=== PATIENT | female | born 1950 | race Caucasian/White ===

== ENCOUNTER → 2016-04-18 | Outpatient (CLI) | payer MEDICARE ==
[2014-10-21 18:45] VITALS: BP 171/74
--- NOTE | 2016-04-18 14:47 | RAD ---
Right forearm, 2 views, 04/18/2016: History: Forearm contusion, injury There is patchy bony demineralization. No fracture is identified. IMPRESSION: No acute bony abnormality is detected.
== END | disposition home or self-care (01) ==
LOC: RAD 13:49
PROVIDERS: ATTEND Internal Medicine
DX: S52.91XA Unspecified fracture of right forearm, initial encounter for closed fracture (principal)
CPT/HCPCS: 73090

== ENCOUNTER 2017-01-11 09:38 | Inpatient (IN) | payer MEDICARE ==
[~2017-01-11] VITALS: Ht 147.3 cm; Wt 43.5 kg
[2017-01-11 10:10] LABS: BILIRUBIN,URINE NEGATIVE (NEG); GLUCOSE,URINE NEGATIVE (NEG); NITRITE,URINE NEGATIVE (NEG); PROTEIN,URINE NEGATIVE (NEG-TRACE)
--- NOTE | 2017-01-11 10:20 | EKG ---
[facility] [address] [place] [address] Test Date: 2017-01-11 Test Time: 10:14:01 Pat Name: AMY KEEN Department: Room: Gender: F Transcript Evaluator: : 1950 Requested By: LENNY CARD Order Number: [id number] Reading MD: Maritza Vázquez Measurements Intervals [place] Rate: 54 P: 90 WI: 152 QRS: 85 QRSD: 76 T: 60 QT: 420 QTc: 400 Interpretive Statements SINUS RHYTHM VENTRICULAR PREMATURE COMPLEX(ES) LOW LIMB LEAD VOLTAGE QRS(T) CONTOUR ABNORMALITY CONSISTENT WITH ANTEROSEPTAL INFARCT AGE UNDETERMINED ABNORMAL ECG Electronically Signed On 01-14-2017 14:35:53 CDT by Maritza Vázquez
--- NOTE | 2017-01-11 10:41 | RAD ---
CT of the head without contrast, 01/11/2017: History: Altered mental status There is moderate cerebral atrophy. There are mild patchy lucencies in the deep white matter bilaterally compatible with chronic ischemic change. The ventricles are within normal limits in size. There is no shift of the midline structures. There is no evidence of acute intracranial hemorrhage or mass effect. IMPRESSION: 1. Cerebral atrophy. 2. Mild patchy deep white matter lucencies compatible with chronic ischemic change. 3. No acute intracranial abnormality is detected. PQRS Compliance Statement: One or more of the following individualized dose reduction techniques were utilized for this examination: 1. Automated exposure control 2. Adjustment of the mA and/or kV according to patient size 3. Use of iterative reconstruction technique
--- NOTE | 2017-01-11 10:46 | RAD ---
EXAM: CHEST 1 VIEW History: Syncope COMPARISON: None available. TECHNIQUE: Single portable radiograph of the chest FINDINGS: The cardiac silhouette is unremarkable. Mild hyperinflated lungs probably emphysematous changes. The costophrenic sulci are clear and well demarcated. Prior changes of CABG. IMPRESSION: No radiographic evidence of an acute cardiopulmonary process.
[2017-01-11 10:51] LABS: BACTERIA,URINE FEW /HPF (0-FEW); SQUAMOUS EPITHELIAL CELL,UR FEW /LPF
--- NOTE | 2017-01-11 11:00 | PHYS DOC ---
Past Medical History Past Medical History: CAD, Hypertension Past Surgical History: Appendectomy, Coronary Bypass Surgery, Hysterectomy Alcohol Use: None Drug Use: None Adult General Chief Complaint Chief Complaint: chest pain, ams [facility] HPI Patient is a 66 year old female who presents with altered mental status and chest pain. Patient states in the middle the night she woke up with a squeezing pressure right-sided chest pain and right back pain that patient attributed to laying on that side wrong. She went back to sleep and woke up 2 hours later and still had the pain. It was near this time that she took 3 total nitroglycerin back to back for the pain. It did improve but did not resolve. Approximately 1.5 hours later made contact the pharmacist she said she could take 3 more of the nitroglycerin which she did. Approximate 10 minutes later patient was sitting at the rectus table and she was staring off in a blank stare, drooling, not responsive to her . No seizure-like activity reported, no loss of consciousness or falls. EMS was called and brought to the ER. Patient now feels better, no active chest pain at this time, no shortness of breath. She was started on amoxicillin yesterday for a bronchitis, she had not yet taken this this morning. No fevers reported, no changes in bowel or bladder. Patient does have a history of coronary artery disease, had open heart surgery several years ago. She states this did not feel similar to the episode she had leading up to the CABG. Primary care physician is Dr. Andrade. Review of Systems Review of Systems Constitutional: Denies fever or chills [] Eyes: Denies change in visual acuity, redness, or eye pain [] HENT: Denies nasal congestion or sore throat [] Respiratory: Reports cough, denies shortness of breath Cardiovascular: No additional information not addressed in HPI [] GI: Denies abdominal pain, nausea, vomiting, bloody stools or diarrhea [] : Denies dysuria or hematuria [] Musculoskeletal: Denies back pain or joint pain [] Integument: Denies rash or skin lesions [] Neurologic: Denies headache, focal weakness or sensory changes [] Allergies Allergies Allergies Coded Allergies Type Severity Reaction Last Updated Verified sulfamethoxazole Allergy Unknown 10/21/14 No trimethoprim Allergy Unknown 10/21/14 No Physical Exam Physical Exam Constitutional: Well developed, well nourished, no acute distress, non-toxic appearance. Thin HENT: Normocephalic, atraumatic, bilateral external ears normal, oropharynx moist, no oral exudates, nose normal. [] Eyes: PERRLA, EOMI, conjunctiva normal, no discharge. [] Neck: Normal range of motion, no tenderness, supple, no stridor. [] Cardiovascular:Heart rate regular regular rhythm, no murmur [] Lungs & Thorax: Bilateral breath sounds clear to auscultation [] Abdomen: Bowel sounds normal, soft, no tenderness, no masses, no pulsatile masses. [] Skin: Warm, dry, no erythema, no rash. [] Back: No tenderness, no CVA tenderness. [] Extremities: No tenderness, no cyanosis, no clubbing, ROM intact, no edema. [] Neurologic: Alert and oriented X 3, normal motor function, normal sensory function, no focal deficits noted, CN II-XII intact Psychologic: Affect normal, judgement normal, mood normal. [] Current Patient Data Vital Signs Vital Signs Date Time Temp Pulse Resp B/P (MAP) Pulse Ox O2 Delivery O2 Flow Rate FiO2 01/11/17 10:53 64 20 98 01/11/17 10:05 97.9 147/64 (91) Room Air 97.9 Lab Values Laboratory Tests Test 01/11/17 09:45 01/11/17 10:50 Urine Collection Type Unknown Urine Color Yellow Urine Clarity Clear Urine pH 6.0 Urine Specific [place] 1.020 Urine Protein Negative mg/dL (NEG-TRACE) Urine Glucose (UA) Negative mg/dL (NEG) Urine Ketones (Stick) Negative mg/dL (NEG) Urine Blood Negative (NEG) Urine Nitrite Negative (NEG) Urine Bilirubin Negative (NEG) Urine Urobilinogen Dipstick 1.0 mg/dL (0.2 mg/dL) Urine Leukocyte Esterase Trace (NEG) Urine RBC 1-2 /HPF (0-2) Urine WBC 1-4 /HPF (0-4) Urine Squamous Epithelial Cells Few /LPF Urine Bacteria Few /HPF (0-FEW) Urine Hyaline Casts Moderate /HPF Urine Mucus Slight /LPF White Blood Count 8.9 x10^3/uL (4.0-11.0) Red Blood Count 4.10 x10^6/uL (3.50-5.40) Hemoglobin 12.9 g/dL (12.0-15.5) Hematocrit 38.1 % (36.0-47.0) Mean Corpuscular Volume 93 fL (79-100) Mean Corpuscular Hemoglobin 32 pg (25-35) Mean Corpuscular Hemoglobin Concent 34 g/dL (31-37) Red Cell Distribution Width 13.6 % (11.5-14.5) Platelet Count 189 x10^3/uL (140-400) Neutrophils (%) (Auto) 63 % (31-73) Lymphocytes (%) (Auto) 26 % (24-48) Monocytes (%) (Auto) 8 % (0-9) Eosinophils (%) (Auto) 2 % (0-3) Basophils (%) (Auto) 1 % (0-3) Neutrophils # (Auto) 5.6 x10^3uL (1.8-7.7) Lymphocytes # (Auto) 2.3 x10^3/uL (1.0-4.8) Monocytes # (Auto) 0.7 x10^3/uL (0.0-1.1) Eosinophils # (Auto) 0.2 x10^3/uL (0.0-0.7) Basophils # (Auto) 0.1 x10^3/uL (0.0-0.2) Prothrombin Time 12.8 SEC (11.7-14.0) Prothrombin Time INR 1.0 (0.8-1.1) D-Dimer (Jacey) 0.45 ug/mlFEU (0.00-0.50) Sodium Level 139 mmol/L (136-145) Potassium Level 4.7 mmol/L (3.5-5.1) Chloride Level 102 mmol/L (98-107) Carbon Dioxide Level 32 mmol/L (21-32) Anion Gap 5 (6-14) L Blood Urea Nitrogen 29 mg/dL (7-20) H Creatinine 1.2 mg/dL (0.6-1.0) H Estimated GFR (Cockcroft-Gault) 44.7 BUN/Creatinine Ratio 24 (6-20) H Glucose Level 98 mg/dL (70-99) Calcium Level 9.0 mg/dL (8.5-10.1) Magnesium Level 2.2 mg/dL (1.8-2.4) Total Bilirubin 0.6 mg/dL (0.2-1.0) Aspartate Amino Transferase (AST) 27 U/L (15-37) Alanine Aminotransferase (ALT) 25 U/L (14-59) Alkaline Phosphatase 71 U/L (46-116) Troponin I Quantitative 0.027 ng/mL (0.000-0.055) Total Protein 7.0 g/dL (6.4-8.2) Albumin 3.4 g/dL (3.4-5.0) Albumin/Globulin Ratio 0.9 (1.0-1.7) L Laboratory Tests 01/11/17 10:50 Laboratory Tests 01/11/17 10:50 EKG EKG 54 bpm, sinus bradycardia, normal axis, normal intervals, wandering baseline but no appreciable ST elevation or depression, T-wave inversion in aVL, interpreted by wa Radiology/Procedures Radiology/Procedures CXR: IMPRESSION: No radiographic evidence of an acute cardiopulmonary process. CT head: IMPRESSION: 1. Cerebral atrophy. 2. Mild patchy deep white matter lucencies compatible with chronic ischemic change. 3. No acute intracranial abnormality is detected. [] Course & Med Decision Making Course & Med Decision Making Pertinent Labs and Imaging studies reviewed. (See chart for details) Patient was given aspirin. No active symptoms while here in the ED. Will admit for ongoing evaluation. I spoke with Dr. Andrade who accepted the patient, requested a consult by cardiology, Dr. Stone, and neurology Macey Disclaimer Dragon Disclaimer This electronic medical record was generated, in whole or in part, using a voice recognition dictation system. Departure Departure Impression: Primary Impression: Chest pain Disposition: ADMITTED INPATIENT Admitting Physician: Justice Andrade Condition: STABLE Referrals: JUSTICE ANDRADE MD (PCP) LENNY CARD MD Jan 11, 2017 11:00
[2017-01-11 11:12] LABS: CREATININE 1.2 mg/dL (0.6-1.0); GFR 44.7; POTASSIUM 4.7 mmol/L (3.5-5.1)
[2017-01-11 11:14] LABS: BASO # 0.1 x10^3/uL (0.0-0.2); BASO % 1 % (0-3); EOS % 2 % (0-3); HEMATOCRIT 38.1 % (36.0-47.0); HEMOGLOBIN 12.9 g/dL (12.0-15.5); LYMPH # 2.3 x10^3/uL (1.0-4.8); LYMPH % 26 % (24-48); MEAN CORPUSCULAR HEMOGLOBIN 32 pg (25-35); MEAN CORPUSCULAR HGB CONC 34 g/dL (31-37); MEAN CORPUSCULAR VOLUME 93 fL (79-100); MONO % 8 % (0-9); NEUT % 63 % (31-73); PLATELET COUNT 189 x10^3/uL (140-400); RED CELL DISTRIBUTION WIDTH 13.6 % (11.5-14.5); WHITE BLOOD COUNT 8.9 x10^3/uL (4.0-11.0)
[2017-01-11 11:18] LABS: ALBUMIN 3.4 g/dL (3.4-5.0); ALBUMIN/GLOBULIN RATIO 0.9 (1.0-1.7); MAGNESIUM 2.2 mg/dL (1.8-2.4); PROTHROMBIN TIME PATIENT 12.8 SEC (11.7-14.0); TOTAL BILIRUBIN 0.6 mg/dL (0.2-1.0)
[2017-01-11] MEDS ORDERED: ONDANSETRON PF 4 MG/2 ML VIAL. IV PRN (11:30)
[2017-01-11] MEDS ORDERED: ASPIRIN 325 MG TABLET PO ONE (11:30)
[2017-01-11] MEDS ORDERED: LISI-334 PO (11:39)
[2017-01-11] MEDS ORDERED: LEVO50TA5 PO (11:40)
[2017-01-11] MEDS ORDERED: AMLO5TAB2 PO (11:40)
[2017-01-11] MEDS ORDERED: ATOR10TA60 PO (11:40)
[2017-01-11] MEDS ORDERED: CARV12.52 PO (11:41)
[2017-01-11] MEDS ORDERED: ASPI-482 PO (11:44)
[2017-01-11] MEDS ORDERED: NITR0.4T SL (11:44)
[2017-01-11] MEDS ORDERED: AMOX500C PO (11:44)
[2017-01-11] MEDS ORDERED: ASPIRIN CHEWABLE 81 MG TABLET. PO ONE (11:45)
[2017-01-11 12:15] VITALS: BP_SYST 141; BP_SYST 157; BP_DIAS 37; BP_DIAS 40
--- NOTE | 2017-01-11 13:00 | PDOC2 ---
CONSULT Date of Consult Date of Consult DATE: 01/11/17 TIME: 12:45 Reason for Consult Reason for Consult: Chest Pain Identification/Chief Complaint Chief Complaint Right chest pain Problems: Source Source: Patient History of Present Illness Reason for Visit: Miss Borjas is a pleasant 66 year old female with PMH of CAD s/p CABG in 2012 that she reports was done here at [facility]. She presented to the ED with chest pain. She reports that she woke up with right sided pain just below her right arm that radiated around to her back this morning. She took 3 nitroglycerin which partially improved her pain and allowed her to go back to sleep. She awoke again several hours later with increased pain, and took nitroglycerin again. After taking the nitroglycerin, she began having a blank stare and was unable to talk per her . At this point, EMS was called and she was brought to the ED. Upon interviewing her, she has no current chest pain or shortness of breath. She reports that she has also had right sided lower back pain for the past 2-3 weeks. she follows up regularly [id number] with her PCP Dr. Andrade. Pt had a recent bronchitis and a lot of cough. Past Medical History Past Medical History CAD s/p CABG 2012 Cardiovascular: CAD, HTN Pulmonary: Bronchitis Past Surgical History Past Surgical History: Appendectomy, CABG, Hysterectomy Social History Lives: with Family Current Problem List Problem List Problems Chest pain-acute altered mental status Current Medications Current Medications Current Medications Aspirin (David Aspirin) 325 mg 1X ONCE PO ; Start 01/11/17 at 11:30; Stop at 11:31; Status DC Ondansetron HCl (Zofran) 4 mg PRN Q8HRS PRN IV NAUSEA/VOMITING; Start at 11:30; Stop 01/12/17 at 11:29 Aspirin (Children'S Aspirin) 162 mg 1X ONCE PO Last administered on t 11:45; Start 01/11/17 at 11:45; Stop 01/11/17 at 11:46; Status DC Active Scripts Active Reported Nitrostat (Nitroglycerin) 0.4 Mg Tab.subl 0.4 Mg SL PRN Q5MIN PRN Aspir 81 (Aspirin) 81 Mg Tablet.dr 1 Tab PO DAILY Amoxicillin 500 Mg Capsule 1 Cap PO Q8HRS Carvedilol 12.5 Mg Tablet 1 Tab PO BID Atorvastatin Calcium 10 Mg Tablet 1 Tab PO DAILY Amlodipine Besylate 5 Mg Tablet 5 Mg PO DAILY Levothyroxine Sodium 50 Mcg Tablet 1 Tab PO DAILY Lisinopril 20 Mg Tablet 1 Tab PO DAILY Allergies Allergies: Coded Allergies: sulfamethoxazole (Unverified Allergy, Unknown, 10/21/14) trimethoprim (Unverified Allergy, Unknown, 10/21/14) Physical Exam Physical Exam General: well appearing, in no acute distress HEENT: neck supple, no JVD Heart: regular rate and rhythm, normal S1, S2, no S3, S4, without murmurs Respiratory: no increased work of breathing, some crackles in R base ext: warm, no clubbing, cyanosis, or edema Neuro: grossly intact Vitals VITALS Vital Signs Date Time Temp Pulse Resp B/P (MAP) Pulse Ox O2 Delivery O2 Flow Rate FiO2 01/11/17 10:53 64 20 98 01/11/17 10:05 97.9 147/64 (91) Room Air 97.9 Labs Labs Laboratory Tests Test 01/11/17 09:45 01/11/17 10:50 Urine Collection Type Unknown Urine Color Yellow Urine Clarity Clear Urine pH 6.0 Urine Specific [place] 1.020 Urine Protein Negative mg/dL (NEG-TRACE) Urine Glucose (UA) Negative mg/dL (NEG) Urine Ketones (Stick) Negative mg/dL (NEG) Urine Blood Negative (NEG) Urine Nitrite Negative (NEG) Urine Bilirubin Negative (NEG) Urine Urobilinogen Dipstick 1.0 mg/dL (0.2 mg/dL) Urine Leukocyte Esterase Trace (NEG) Urine RBC 1-2 /HPF (0-2) Urine WBC 1-4 /HPF (0-4) Urine Squamous Epithelial Cells Few /LPF Urine Bacteria Few /HPF (0-FEW) Urine Hyaline Casts Moderate /HPF Urine Mucus Slight /LPF White Blood Count 8.9 x10^3/uL (4.0-11.0) Red Blood Count 4.10 x10^6/uL (3.50-5.40) Hemoglobin 12.9 g/dL (12.0-15.5) Hematocrit 38.1 % (36.0-47.0) Mean Corpuscular Volume 93 fL (79-100) Mean Corpuscular Hemoglobin 32 pg (25-35) Mean Corpuscular Hemoglobin Concent 34 g/dL (31-37) Red Cell Distribution Width 13.6 % (11.5-14.5) Platelet Count 189 x10^3/uL (140-400) Neutrophils (%) (Auto) 63 % (31-73) Lymphocytes (%) (Auto) 26 % (24-48) Monocytes (%) (Auto) 8 % (0-9) Eosinophils (%) (Auto) 2 % (0-3) Basophils (%) (Auto) 1 % (0-3) Neutrophils # (Auto) 5.6 x10^3uL (1.8-7.7) Lymphocytes # (Auto) 2.3 x10^3/uL (1.0-4.8) Monocytes # (Auto) 0.7 x10^3/uL (0.0-1.1) Eosinophils # (Auto) 0.2 x10^3/uL (0.0-0.7) Basophils # (Auto) 0.1 x10^3/uL (0.0-0.2) Prothrombin Time 12.8 SEC (11.7-14.0) Prothromb Time International Ratio 1.0 (0.8-1.1) D-Dimer (Jacey) 0.45 ug/mlFEU (0.00-0.50) Sodium Level 139 mmol/L (136-145) Potassium Level 4.7 mmol/L (3.5-5.1) Chloride Level 102 mmol/L (98-107) Carbon Dioxide Level 32 mmol/L (21-32) Anion Gap 5 (6-14) Blood Urea Nitrogen 29 mg/dL (7-20) Creatinine 1.2 mg/dL (0.6-1.0) Estimated GFR (Cockcroft-Gault) 44.7 BUN/Creatinine Ratio 24 (6-20) Glucose Level 98 mg/dL (70-99) Calcium Level 9.0 mg/dL (8.5-10.1) Magnesium Level 2.2 mg/dL (1.8-2.4) Total Bilirubin 0.6 mg/dL (0.2-1.0) Aspartate Amino Transf (AST/SGOT) 27 U/L (15-37) Alanine Aminotransferase (ALT/SGPT) 25 U/L (14-59) Alkaline Phosphatase 71 U/L (46-116) Troponin I Quantitative 0.027 ng/mL (0.000-0.055) Total Protein 7.0 g/dL (6.4-8.2) Albumin 3.4 g/dL (3.4-5.0) Albumin/Globulin Ratio 0.9 (1.0-1.7) Laboratory Tests Test 01/11/17 09:45 01/11/17 10:50 Urine Collection Type Unknown Urine Color Yellow Urine Clarity Clear Urine pH 6.0 Urine Specific [place] 1.020 Urine Protein Negative mg/dL (NEG-TRACE) Urine Glucose (UA) Negative mg/dL (NEG) Urine Ketones (Stick) Negative mg/dL (NEG) Urine Blood Negative (NEG) Urine Nitrite Negative (NEG) Urine Bilirubin Negative (NEG) Urine Urobilinogen Dipstick 1.0 mg/dL (0.2 mg/dL) Urine Leukocyte Esterase Trace (NEG) Urine RBC 1-2 /HPF (0-2) Urine WBC 1-4 /HPF (0-4) Urine Squamous Epithelial Cells Few /LPF Urine Bacteria Few /HPF (0-FEW) Urine Hyaline Casts Moderate /HPF Urine Mucus Slight /LPF White Blood Count 8.9 x10^3/uL (4.0-11.0) Red Blood Count 4.10 x10^6/uL (3.50-5.40) Hemoglobin 12.9 g/dL (12.0-15.5) Hematocrit 38.1 % (36.0-47.0) Mean Corpuscular Volume 93 fL (79-100) Mean Corpuscular Hemoglobin 32 pg (25-35) Mean Corpuscular Hemoglobin Concent 34 g/dL (31-37) Red Cell Distribution Width 13.6 % (11.5-14.5) Platelet Count 189 x10^3/uL (140-400) Neutrophils (%) (Auto) 63 % (31-73) Lymphocytes (%) (Auto) 26 % (24-48) Monocytes (%) (Auto) 8 % (0-9) Eosinophils (%) (Auto) 2 % (0-3) Basophils (%) (Auto) 1 % (0-3) Neutrophils # (Auto) 5.6 x10^3uL (1.8-7.7) Lymphocytes # (Auto) 2.3 x10^3/uL (1.0-4.8) Monocytes # (Auto) 0.7 x10^3/uL (0.0-1.1) Eosinophils # (Auto) 0.2 x10^3/uL (0.0-0.7) Basophils # (Auto) 0.1 x10^3/uL (0.0-0.2) Prothrombin Time 12.8 SEC (11.7-14.0) Prothromb Time International Ratio 1.0 (0.8-1.1) D-Dimer (Jacey) 0.45 ug/mlFEU (0.00-0.50) Sodium Level 139 mmol/L (136-145) Potassium Level 4.7 mmol/L (3.5-5.1) Chloride Level 102 mmol/L (98-107) Carbon Dioxide Level 32 mmol/L (21-32) Anion Gap 5 (6-14) Blood Urea Nitrogen 29 mg/dL (7-20) Creatinine 1.2 mg/dL (0.6-1.0) Estimated GFR (Cockcroft-Gault) 44.7 BUN/Creatinine Ratio 24 (6-20) Glucose Level 98 mg/dL (70-99) Calcium Level 9.0 mg/dL (8.5-10.1) Magnesium Level 2.2 mg/dL (1.8-2.4) Total Bilirubin 0.6 mg/dL (0.2-1.0) Aspartate Amino Transf (AST/SGOT) 27 U/L (15-37) Alanine Aminotransferase (ALT/SGPT) 25 U/L (14-59) Alkaline Phosphatase 71 U/L (46-116) Troponin I Quantitative 0.027 ng/mL (0.000-0.055) Total Protein 7.0 g/dL (6.4-8.2) Albumin 3.4 g/dL (3.4-5.0) Albumin/Globulin Ratio 0.9 (1.0-1.7) Assessment/Plan Assessment/Plan Miss Borjas is a 66 year old female with PMH CAD s/p CABG who presented to the ED with altered mental status following taking nitroglycerin for chest pain The chest pain seems to be atypical for angina and is probably secondary to chest wall pain from coughing. The episode of unresponsiveness may be secondary to hypotension from the nitroglycerin. At this time she seems to be normal and back to her baseline. I would like to get an echocardiogram to see where the LV function is at. Thank you for asking me to participate in the care of this pt. JOHN PAUL CARVER MD Jan 11, 2017 13:00
[2017-01-11] MEDS ORDERED: NITROGLYCERIN SUBLINGUAL 0.4 MG BOTTLE OF 25. SL PRN (14:15)
[2017-01-11] MEDS: amLODIPine BESYLATE 5 MG TABLET PO SCH (14:30)
[2017-01-11] MEDS: LEVOTHYROXINE 50 MCG TABLET PO SCH (14:30)
[2017-01-11] MEDS: LISINOPRIL 20 MG TABLET PO SCH (14:30)
--- NOTE | 2017-01-11 14:53 | PDOC ---
Provider Note Provider Note history and physical dictated # [id number] JAME RILEY MD Jan 11, 2017 14:52
[2017-01-11] MEDS ORDERED: ACETAMINOPHEN 325 MG TABLET. PO PRN (15:00)
[2017-01-11] MEDS ORDERED: IV 1/2 NORMAL SALINE 1,000 ML IV SCH (15:00)
[2017-01-11] MEDS ORDERED: MAGNESIUM HYDROXIDE 2,400 MG/30 ML ORAL.SUSP. PO PRN (15:00)
--- NOTE | 2017-01-11 15:26 | HP ---
ADMIT DATE: 01/11/2017 HISTORY OF PRESENT ILLNESS: The patient is a 66-year-old white female with history of coronary artery disease and previous coronary artery bypass graft surgery in 2012, who has hypertension, hyperlipidemia and hypothyroidism who awoke in the morning with some right-sided chest pain. She took 3 sublingual nitroglycerins which improved the pain and she eventually went to sleep, but she again was awakened with chest discomfort and took three 81 mg aspirins and also took some more sublingual nitroglycerin and was sitting at the table and her noted that she had a blank stare and some drooling and this lasted for about 10-15 minutes and eventually resolved. EMT was summoned and the patient was noted to be confused and did not have any recurrent chest pain or shortness of breath, sent to the [facility] Emergency Room where an EKG showed no acute change. Chest x-ray was clear. A CAT scan of the head was negative. She was alert, coherent and pain free. She is therefore admitted for further evaluation of her chest pain. Her D-dimer was normal. She was subsequently admitted to the hospital for evaluation. She has already been seen by Dr. Stone in consultation. We have consulted the neurologist who has not seen the patient as of yet and she was seen by myself in the Emergency Room. ALLERGIES: Include SULFA and TRIMETHOPRIM. MEDICATIONS: Include amoxicillin 500 mg t.i.d., which was started yesterday for acute bronchitis, multiple vitamin once a day, carvedilol 12.5 mg b.i.d., levothyroxine 50 mcg every day, nitroglycerin 0.4 mg sublingual p.r.n., atorvastatin 10 mg every day, lisinopril 20 mg every day, amlodipine 5 mg every day and aspirin 81 mg every day. PAST MEDICAL HISTORY: Significant for coronary artery disease, hypertension, hyperlipidemia, hypothyroidism, recently diagnosed acute bronchitis. She also has a history of an appendectomy, total abdominal hysterectomy, bilateral salpingo-oophorectomy and coronary artery bypass graft surgery in 2012. SOCIAL HISTORY: She does not drink alcohol nor does she smoke cigarettes. She is . FAMILY HISTORY: Father had hypertension. REVIEW OF SYSTEMS: GENERAL: There has been no fever, chills or sweats. CARDIOVASCULAR: She had chest pain. PULMONARY: She had a cough yesterday, but not much today. GASTROINTESTINAL: No constipation. SKIN: No rashes. NEUROLOGIC: She had the episode of unresponsiveness. The rest of systems reviewed are negative except as stated in history of present illness. PHYSICAL EXAMINATION: VITAL SIGNS: Temperature is 98.1 degrees, pulse rate was 62, respiratory rate 20, blood pressure 141/37, oxygen saturation 96% on room air. HEENT: Eyes: Gaze is conjugate. Extraocular muscles are intact. Mouth: Tongue is midline. NECK: There is no cervical lymphadenopathy or thyroid enlargement. HEART: Reveals an S1, S2. There is no S3 or murmur. LUNGS: Clear. ABDOMEN: Soft with no hepatosplenomegaly, masses or tenderness. BREASTS: No masses. EXTREMITIES: Lower extremities without edema. SKIN: No rashes. NEUROLOGIC: She is coherent, speaks fluently. She has no facial weakness. Kzuqop-[id number]-fqdj testing is normal bilaterally. 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 SKIN: No rashes. LABORATORY DATA: White count 8.9, hemoglobin 12.9, platelet count 189,000, 63 polys and 26 lymphocytes. INR 1.0 with a D-dimer of 0.45. Serum sodium 139, potassium 4.7, chloride 102, total CO2 of 32, BUN 29, creatinine 1.2. Liver function tests were normal. Albumin 3.4, troponin was 0.027. Urinalysis was unremarkable. She did have a chest x-ray, which showed clear lungs and no acute abnormality. She had a CAT scan of the brain done without contrast, which showed no acute abnormality. She had some cerebral atrophy. Electrocardiogram showed sinus rhythm with no acute change. I believe she had a premature ventricular contraction. ASSESSMENT: 1. Atypical right-sided chest pain. It does not sound cardiac. 2. Appears to have syncopal episode. I doubt seizure. It is possible she could have some orthostatic hypotension from the sublingual nitroglycerin in the setting of prerenal azotemia and dehydration. 3. Dehydration. PLAN: 1. At this time is to give her some IV fluids and when seen by senior windows systems administrator will also consult Dr. Betancourt for Cardiology. Gave her some IV fluids. 2. Hypertension. 3. Hyperlipidemia. 4. Hypothyroidism. 5. Coronary artery disease with previous coronary bypass graft surgery. We will do cardiac enzymes also. JAME RILEY MD DR: Reid JOB#: [id number] / [id number]
--- NOTE | 2017-01-11 16:11 | PDOC2 ---
NEUROLOGY CONSULT Date of Admission Date of Admission DATE: 01/11/17 TIME: 15:39 Reason for Consult Reason for Consult: IMPRESSION: Unresponsiveness episode. Confusion. CVA evaluation. Chest pain, right side chest. HTN HLD CAD s/p CABG Hypothyroidism RECOMMENDATIONS/PLAN: EEG Lab: see orders. Brain MRI w/o contrast. Treat medical and cardiac disease. Discussed with her at bedside. HISTORY OF THE PRESENT ILLNESS: 66-y-old female patient with above medical and cardiac diseases had an episode of unresponsiveness. The patient was unable to provide the detailed information about her episode due to lack of memory on it, but she remembered she had severe right side chest pain that woken her up from sleep. She eventually took 3 nitroglycerin for her right side and back chest pain. Per her , she then was sitting there became unresponsive to verbal and textile stimuli. Her eye were described as open as staring. No seizure observed. 911 was called and she was brought to the ER of [facility]. Her episode lasted for about 10 minutes. PAST MEDICAL HISTORY: HTN HLD CAD Hypothyroidism PAST SURGERY HISTORY: S/P CABG Appendectomy Hysterectomy ALLERGY: Sulfa drugs. MEDICATIONS: Refer to [facility] FAMILY HISTORY: Her father had HTN. SOCIAL HISTORY: Lives at home. Denies current smoking, drinking, and illicit drug use. REVIEW OF SYSTEMS: Constitutional: Mild malnutrition. Head: No recent traumatic brain or head injury. Skin: No edema, or rash. Ear: No infection, tinnitus. Eyes: No vision loss or color blindness. Nose: No bleeding or purulent discharges. Hearing: No hearing decrease. Neck: No recent injury. Breast: No history of cancer, masses,or discharges. Cardiac: CAD, s/p CABG, HTN, HLD. Pulmonary: No COPD. GI: No GI ulcer, GI bleeding. Urinary/genital: UTI. Endocrinologic: Hypothyroidism. Skeletomuscular: No muscular atrophy, deformity. Neurological: see HP. Psychiatric: Denies drug use/abuse. Otherwise, not [id number] review of systems. PHYSICAL EXAMINATION: General appearance is in subacute distress. HEENT: Normocephalic and nontraumatic. Eyes, nose, ears, and throat are unremarkable. Neck is supple. No lymphadenopathy. No bruits are heard over the carotid artery. No crepitus. Cardiovascular: S1, S2, regular rate and rhythm. Pulmonary: Clear to auscultation bilaterally. Abdomen: Bowel sounds are positive. Abdomen is soft, nontender, and nondistended. Extremities: No rash, lesions, or edema. No restriction of range of motion NEUROLOGICAL EXAMINATION: Alert Oriented to time, place and person. PERRL. EOMI. CN: no focal findings. Muscle tone: within normal. Muscle strength: 5- DTR: 2 Plantar reflex: Flexor response bilaterally Gait: not examined in bed. Sensory exam: no abnormal findings. No cerebellar signs elicited. F-T-N test accurate. Current Medications Current Medications Current Medications Aspirin (David Aspirin) 325 mg 1X ONCE PO ; Start 01/11/17 at 11:30; Stop at 11:31; Status DC Ondansetron HCl (Zofran) 4 mg PRN Q8HRS PRN IV NAUSEA/VOMITING; Start at 11:30; Stop 01/12/17 at 11:29 Aspirin (Children'S Aspirin) 162 mg 1X ONCE PO Last administered on t 11:45; Start 01/11/17 at 11:45; Stop 01/11/17 at 11:46; Status DC Amlodipine Besylate (Norvasc) 5 mg DAILY PO ; Start 01/11/17 at 14:30 Aspirin (Ecotrin) 81 mg DAILY08 PO ; Start 01/12/17 at 08:00 Atorvastatin Calcium (Lipitor) 10 mg QHS PO ; Start 01/11/17 at 21:00 Carvedilol (Coreg) 12.5 mg BIDWMEALS PO ; Start 01/11/17 at 17:00 Levothyroxine Sodium (Synthroid) 50 mcg DAILY07 PO ; Start 01/11/17 at 14:30 Lisinopril (Prinivil) 20 mg DAILY PO ; Start 01/11/17 at 14:30 Nitroglycerin (Nitrostat) 0.4 mg PRN Q5MIN PRN SL CHEST PAIN; Start 01/11/17 at 14:15 Amoxicillin (Amoxil) 500 mg [id number] PO ; Start 01/11/17 at 14:30 Lactobacillus Rhamnosus (Culturelle) 1 cap BID PO ; Start 01/11/17 at 21:00 Sodium Chloride 1,000 ml @ 50 mls/hr Q20H IV ; Start 01/11/17 at 15:00 Acetaminophen (Tylenol) 650 mg PRN Q6HRS PRN PO MILD PAIN / TEMP; Start at 15:00 Magnesium Hydroxide (Milk Of Magnesia) 2,400 mg PRN DAILY PRN PO CONSTIPATION; Start 01/11/17 at 15:00 Active Scripts Active Reported Nitrostat (Nitroglycerin) 0.4 Mg Tab.subl 0.4 Mg SL PRN Q5MIN PRN Aspir 81 (Aspirin) 81 Mg Tablet.dr 1 Tab PO DAILY Amoxicillin 500 Mg Capsule 1 Cap PO Q8HRS Carvedilol 12.5 Mg Tablet 1 Tab PO BID Atorvastatin Calcium 10 Mg Tablet 1 Tab PO DAILY Amlodipine Besylate 5 Mg Tablet 5 Mg PO DAILY Levothyroxine Sodium 50 Mcg Tablet 1 Tab PO DAILY Lisinopril 20 Mg Tablet 1 Tab PO DAILY Allergies Allergies: Coded Allergies: sulfamethoxazole (Unverified Allergy, Unknown, 10/21/14) trimethoprim (Unverified Allergy, Unknown, 10/21/14) Vitals VITALS Vital Signs Date Time Temp Pulse Resp B/P (MAP) Pulse Ox O2 Delivery O2 Flow Rate FiO2 01/11/17 12:15 98.1 62 20 141/37 (71) 96 Room Air 98.1 Labs Labs Laboratory Tests Test 01/11/17 09:45 01/11/17 10:50 Urine Collection Type Unknown Urine Color Yellow Urine Clarity Clear Urine pH 6.0 Urine Specific [place] 1.020 Urine Protein Negative mg/dL (NEG-TRACE) Urine Glucose (UA) Negative mg/dL (NEG) Urine Ketones (Stick) Negative mg/dL (NEG) Urine Blood Negative (NEG) Urine Nitrite Negative (NEG) Urine Bilirubin Negative (NEG) Urine Urobilinogen Dipstick 1.0 mg/dL (0.2 mg/dL) Urine Leukocyte Esterase Trace (NEG) Urine RBC 1-2 /HPF (0-2) Urine WBC 1-4 /HPF (0-4) Urine Squamous Epithelial Cells Few /LPF Urine Bacteria Few /HPF (0-FEW) Urine Hyaline Casts Moderate /HPF Urine Mucus Slight /LPF White Blood Count 8.9 x10^3/uL (4.0-11.0) Red Blood Count 4.10 x10^6/uL (3.50-5.40) Hemoglobin 12.9 g/dL (12.0-15.5) Hematocrit 38.1 % (36.0-47.0) Mean Corpuscular Volume 93 fL (79-100) Mean Corpuscular Hemoglobin 32 pg (25-35) Mean Corpuscular Hemoglobin Concent 34 g/dL (31-37) Red Cell Distribution Width 13.6 % (11.5-14.5) Platelet Count 189 x10^3/uL (140-400) Neutrophils (%) (Auto) 63 % (31-73) Lymphocytes (%) (Auto) 26 % (24-48) Monocytes (%) (Auto) 8 % (0-9) Eosinophils (%) (Auto) 2 % (0-3) Basophils (%) (Auto) 1 % (0-3) Neutrophils # (Auto) 5.6 x10^3uL (1.8-7.7) Lymphocytes # (Auto) 2.3 x10^3/uL (1.0-4.8) Monocytes # (Auto) 0.7 x10^3/uL (0.0-1.1) Eosinophils # (Auto) 0.2 x10^3/uL (0.0-0.7) Basophils # (Auto) 0.1 x10^3/uL (0.0-0.2) Prothrombin Time 12.8 SEC (11.7-14.0) Prothromb Time International Ratio 1.0 (0.8-1.1) D-Dimer (Jacey) 0.45 ug/mlFEU (0.00-0.50) Sodium Level 139 mmol/L (136-145) Potassium Level 4.7 mmol/L (3.5-5.1) Chloride Level 102 mmol/L (98-107) Carbon Dioxide Level 32 mmol/L (21-32) Anion Gap 5 (6-14) Blood Urea Nitrogen 29 mg/dL (7-20) Creatinine 1.2 mg/dL (0.6-1.0) Estimated GFR (Cockcroft-Gault) 44.7 BUN/Creatinine Ratio 24 (6-20) Glucose Level 98 mg/dL (70-99) Calcium Level 9.0 mg/dL (8.5-10.1) Magnesium Level 2.2 mg/dL (1.8-2.4) Total Bilirubin 0.6 mg/dL (0.2-1.0) Aspartate Amino Transf (AST/SGOT) 27 U/L (15-37) Alanine Aminotransferase (ALT/SGPT) 25 U/L (14-59) Alkaline Phosphatase 71 U/L (46-116) Troponin I Quantitative 0.027 ng/mL (0.000-0.055) Total Protein 7.0 g/dL (6.4-8.2) Albumin 3.4 g/dL (3.4-5.0) Albumin/Globulin Ratio 0.9 (1.0-1.7) Laboratory Tests Test 01/11/17 09:45 01/11/17 10:50 Urine Collection Type Unknown Urine Color Yellow Urine Clarity Clear Urine pH 6.0 Urine Specific [place] 1.020 Urine Protein Negative mg/dL (NEG-TRACE) Urine Glucose (UA) Negative mg/dL (NEG) Urine Ketones (Stick) Negative mg/dL (NEG) Urine Blood Negative (NEG) Urine Nitrite Negative (NEG) Urine Bilirubin Negative (NEG) Urine Urobilinogen Dipstick 1.0 mg/dL (0.2 mg/dL) Urine Leukocyte Esterase Trace (NEG) Urine RBC 1-2 /HPF (0-2) Urine WBC 1-4 /HPF (0-4) Urine Squamous Epithelial Cells Few /LPF Urine Bacteria Few /HPF (0-FEW) Urine Hyaline Casts Moderate /HPF Urine Mucus Slight /LPF White Blood Count 8.9 x10^3/uL (4.0-11.0) Red Blood Count 4.10 x10^6/uL (3.50-5.40) Hemoglobin 12.9 g/dL (12.0-15.5) Hematocrit 38.1 % (36.0-47.0) Mean Corpuscular Volume 93 fL (79-100) Mean Corpuscular Hemoglobin 32 pg (25-35) Mean Corpuscular Hemoglobin Concent 34 g/dL (31-37) Red Cell Distribution Width 13.6 % (11.5-14.5) Platelet Count 189 x10^3/uL (140-400) Neutrophils (%) (Auto) 63 % (31-73) Lymphocytes (%) (Auto) 26 % (24-48) Monocytes (%) (Auto) 8 % (0-9) Eosinophils (%) (Auto) 2 % (0-3) Basophils (%) (Auto) 1 % (0-3) Neutrophils # (Auto) 5.6 x10^3uL (1.8-7.7) Lymphocytes # (Auto) 2.3 x10^3/uL (1.0-4.8) Monocytes # (Auto) 0.7 x10^3/uL (0.0-1.1) Eosinophils # (Auto) 0.2 x10^3/uL (0.0-0.7) Basophils # (Auto) 0.1 x10^3/uL (0.0-0.2) Prothrombin Time 12.8 SEC (11.7-14.0) Prothromb Time International Ratio 1.0 (0.8-1.1) D-Dimer (Jacey) 0.45 ug/mlFEU (0.00-0.50) Sodium Level 139 mmol/L (136-145) Potassium Level 4.7 mmol/L (3.5-5.1) Chloride Level 102 mmol/L (98-107) Carbon Dioxide Level 32 mmol/L (21-32) Anion Gap 5 (6-14) Blood Urea Nitrogen 29 mg/dL (7-20) Creatinine 1.2 mg/dL (0.6-1.0) Estimated GFR (Cockcroft-Gault) 44.7 BUN/Creatinine Ratio 24 (6-20) Glucose Level 98 mg/dL (70-99) Calcium Level 9.0 mg/dL (8.5-10.1) Magnesium Level 2.2 mg/dL (1.8-2.4) Total Bilirubin 0.6 mg/dL (0.2-1.0) Aspartate Amino Transf (AST/SGOT) 27 U/L (15-37) Alanine Aminotransferase (ALT/SGPT) 25 U/L (14-59) Alkaline Phosphatase 71 U/L (46-116) Troponin I Quantitative 0.027 ng/mL (0.000-0.055) Total Protein 7.0 g/dL (6.4-8.2) Albumin 3.4 g/dL (3.4-5.0) Albumin/Globulin Ratio 0.9 (1.0-1.7) IGNACIO ESCALANTE MD Jan 11, 2017 16:11
--- NOTE | 2017-01-11 17:32 | RAD ---
EXAM: Brain MRI without contrast. HISTORY: Mental status changes. TECHNIQUE: Multiplanar, multisequence magnetic resonance imaging of the brain was performed without contrast. COMPARISON: None. FINDINGS: There is no restricted diffusion to suggest acute or subacute infarction. There is a focus of susceptibility effect within the right occipital lobe likely due to chronic microhemorrhage. There is no mass effect or midline shift. There is no hydrocephalus. There are scattered focal areas of signal change within the cerebral white matter, a nonspecific finding likely due to chronic small vessel disease. There is evidence of lens surgery. There is paranasal sinus because of thickening. The mastoid air cells are clear. There are normal flow voids within the cerebral vessels. IMPRESSION: 1. No acute intracranial finding. 2. Focal areas of signal change within the cerebral white matter, a nonspecific finding likely due to chronic small vessel disease. 3. Cerebral volume loss, greater than expected for patient age. Electronically signed by: Josy Martinez MD (01/11/2017 5:28 PM) [id number]
[2017-01-11] MEDS: AMOXICILLIN 250 MG CAPSULE. PO SCH ×2 (19:12→21:00)
[2017-01-11] MEDS: CARVEDILOL 12.5 MG TABLET. PO SCH (19:12)
--- NOTE | 2017-01-11 19:12 | CARD ---
APPROVED REPORT EXAM: Two-dimensional and M-mode echocardiogram with Doppler and color Doppler. Other Information Quality : Good INDICATION Chest Pain Post-CABGS 2D DIMENSIONS Left Atrium(2D)3.0 (1.6-4.0cm)IVSd0.8 (0.7-1.1cm) Aortic Root(2D)2.4 (2.0-3.7cm)LVDd3.8 (3.9-5.9cm) LVOT Diameter2.0 (1.8-2.4cm)PWd0.8 (0.7-1.1cm) LVDs2.5 (2.5-4.0cm)FS (%) 34.8 % SV40.4 mlLVEF(%)65.0 (>50%) Aortic Valve AoV Peak Shukri.135.6cm/sAoV VTI37.6cm AO Peak GR.7.4mmHgLVOT Peak Shukri.64.6cm/s AO Mean GR.4mmHgAVA (VMAX)1.47cm2 [place] (VTI)1.50cm2 Mitral Valve MV E Uwjdernm000.5cm/sMV DECEL [id number] MV A Ealvhvlr99.3cm/sE/A Ratio2.1 Tricuspid Valve TR P. Kopnjphu037wg/sRAP DQFBQZBW6trQs TR Peak Gr.11vmNwNMQM33ceSm Pulmonary Vein S1 Dxrwinhu51.8cm/sD2 Aeurqnom73.6cm/s LEFT VENTRICLE The left ventricle is normal size. There is normal left ventricular wall thickness. Left ventricle sy stolic function is normal. The Ejection Fraction is 65%. Septal motion consistent with post-operative state. Transmitral Doppler flow pattern is Grade I-abnormal relaxation pattern. RIGHT VENTRICLE The right ventricle is normal size. The right ventricular systolic function is normal. ATRIA The left atrium size is normal. The right atrium size is normal. The interatrial septum is intact wit h no evidence for an atrial septal defect or patent foramen ovale as noted on 2-D or Doppler imaging. AORTIC VALVE The aortic valve is calcified but opens well. Doppler and Color Flow revealed trace aortic regurgitat ion. There is mild valvular aortic stenosis. MITRAL VALVE The mitral valve is calcified but opens well. There is no evidence of mitral valve prolapse. There is no mitral valve stenosis. Doppler and Color-flow revealed mild mitral regurgitation. TRICUSPID VALVE The tricuspid valve is normal in structure and function. Doppler and Color Flow revealed mild tricusp id regurgitation. There is mild pulmonary hypertension. The PA pressure was estimated at 33 mmHg. The re is no tricuspid valve prolapse or vegetation. There is no tricuspid valve stenosis. PULMONIC VALVE The pulmonary valve is normal in structure Doppler and Color Flow revealed mild pulmonic valvular reg urgitation. There is no pulmonic valvular stenosis. GREAT VESSELS The aortic root is normal in size. The ascending aorta is normal in size. The IVC is normal in size a nd collapses >50% with inspiration. PERICARDIAL EFFUSION There is no pleural effusion. There is no evidence of significant pericardial effusion. Critical Notification Critical Value: No <Conclusion> Left ventricle systolic function is normal. The Ejection Fraction is 65%. Transmitral Doppler flow pattern is Grade I-abnormal relaxation pattern. The left atrium size is normal. The right atrium size is normal. Doppler and Color Flow revealed trace aortic regurgitation. Doppler and Color-flow revealed mild mitral regurgitation. The mitral valve is calcified but opens well. Doppler and Color Flow revealed mild tricuspid regurgitation. There is mild pulmonary hypertension. The PA pressure was estimated at 33 mmHg. Doppler and Color Flow revealed mild pulmonic valvular regurgitation. There is no evidence of significant pericardial effusion.
[2017-01-11 19:45] VITALS: BP 134/59
[2017-01-11] MEDS ORDERED: ATORVASTATIN CALCIUM 10 MG TABLET. PO SCH (21:00)
[2017-01-11] MEDS: LACTOBACILLUS RHAMNOSUS GG 1 CAPSULE. PO SCH (21:08)
[2017-01-11 23:35] VITALS: BP 122/42
[2017-01-12 03:35] VITALS: BP 168/52
[2017-01-12 04:47] LABS: BASO # 0.1 x10^3/uL (0.0-0.2); BASO % 1 % (0-3); EOS % 5 % (0-3); HEMATOCRIT 37.9 % (36.0-47.0); HEMOGLOBIN 12.7 g/dL (12.0-15.5); LYMPH # 3.5 x10^3/uL (1.0-4.8); LYMPH % 43 % (24-48); MEAN CORPUSCULAR HEMOGLOBIN 31 pg (25-35); MEAN CORPUSCULAR HGB CONC 34 g/dL (31-37); MEAN CORPUSCULAR VOLUME 93 fL (79-100); MONO % 11 % (0-9); NEUT % 41 % (31-73); PLATELET COUNT 190 x10^3/uL (140-400); RED BLOOD COUNT 4.09 x10^6/uL (3.50-5.40); RED CELL DISTRIBUTION WIDTH 13.1 % (11.5-14.5); WHITE BLOOD COUNT 8.2 x10^3/uL (4.0-11.0)
[2017-01-12 05:06] LABS: CALCIUM 8.6 mg/dL (8.5-10.1); GFR 55.1; POTASSIUM 3.7 mmol/L (3.5-5.1)
[2017-01-12 07:00] VITALS: BP 120/45
[2017-01-12] MEDS: LEVOTHYROXINE 50 MCG TABLET PO SCH (07:35)
[2017-01-12] MEDS ORDERED: ASPIRIN ENTERIC COATED 81 MG TABLET.DR. PO SCH (08:00)
[2017-01-12] MEDS: LACTOBACILLUS RHAMNOSUS GG 1 CAPSULE. PO SCH (08:49)
[2017-01-12] MEDS: CARVEDILOL 12.5 MG TABLET. PO SCH (08:49)
[2017-01-12] MEDS: AMOXICILLIN 250 MG CAPSULE. PO SCH ×2 (08:49→13:58)
[2017-01-12] MEDS: LISINOPRIL 20 MG TABLET PO SCH (08:50)
[2017-01-12] MEDS: amLODIPine BESYLATE 5 MG TABLET PO SCH (08:50)
[2017-01-12 11:00] VITALS: BP 121/41
--- NOTE | 2017-01-12 11:46 | PDOC ---
PROGRESS NOTES Subjective Subjective feels well. no right sided chest pain or syncope. no arrhythmia. MRI brain and echo okay. wants to go home Objective Objective Vital Signs Date Time Temp Pulse Resp B/P (MAP) Pulse Ox O2 Delivery O2 Flow Rate FiO2 01/12/17 11:00 98.0 65 18 121/41 (67) 94 Room Air 98.0 Intake and Output 01/13/17 07:00 Intake Total 250 ml Balance 250 ml Intake Oral 250 ml Physical Exam Abdomen: Soft Heart: Regular rate, Normal S1, Normal S2 Extremities: No edema General: Alert HEENT: Atraumatic Lungs: Clear to auscultation Neuro: Normal speech Psych/Mental Status: Mental status NL Skin: No rashes Assessment Assessment Problems1. Atypical right-sided chest pain. suspect chest wall pain 2. syncope due to hypotension from sl NTG and dehydration 3. Dehydration. Hypertension. Hyperlipidemia. Hypothyroidism. Coronary artery disease with previous coronary bypass graft surgery Medical Problems: (1) Chest pain Status: Acute Plan Plan of Care d/c iv fluids dismiss today if okay with dr. simms and dr. tran Comment Review of Relevant I have reviewed the following items segundo (where applicable) has been applied. Labs Laboratory Tests Test 01/11/17 09:45 01/11/17 10:50 01/11/17 17:14 01/11/17 17:30 Urine Collection Type Unknown Urine Color Yellow Urine Clarity Clear Urine pH 6.0 Urine Specific [place] 1.020 Urine Protein Negative mg/dL (NEG-TRACE) Urine Glucose (UA) Negative mg/dL (NEG) Urine Ketones (Stick) Negative mg/dL (NEG) Urine Blood Negative (NEG) Urine Nitrite Negative (NEG) Urine Bilirubin Negative (NEG) Urine Urobilinogen Dipstick 1.0 mg/dL (0.2 mg/dL) Urine Leukocyte Esterase Trace (NEG) Urine RBC 1-2 /HPF (0-2) Urine WBC 1-4 /HPF (0-4) Urine Squamous Epithelial Cells Few /LPF Urine Bacteria Few /HPF (0-FEW) Urine Hyaline Casts Moderate /HPF Urine Mucus Slight /LPF White Blood Count 8.9 x10^3/uL (4.0-11.0) Red Blood Count 4.10 x10^6/uL (3.50-5.40) Hemoglobin 12.9 g/dL (12.0-15.5) Hematocrit 38.1 % (36.0-47.0) Mean Corpuscular Volume 93 fL (79-100) Mean Corpuscular Hemoglobin 32 pg (25-35) Mean Corpuscular Hemoglobin Concent 34 g/dL (31-37) Red Cell Distribution Width 13.6 % (11.5-14.5) Platelet Count 189 x10^3/uL (140-400) Neutrophils (%) (Auto) 63 % (31-73) Lymphocytes (%) (Auto) 26 % (24-48) Monocytes (%) (Auto) 8 % (0-9) Eosinophils (%) (Auto) 2 % (0-3) Basophils (%) (Auto) 1 % (0-3) Neutrophils # (Auto) 5.6 x10^3uL (1.8-7.7) Lymphocytes # (Auto) 2.3 x10^3/uL (1.0-4.8) Monocytes # (Auto) 0.7 x10^3/uL (0.0-1.1) Eosinophils # (Auto) 0.2 x10^3/uL (0.0-0.7) Basophils # (Auto) 0.1 x10^3/uL (0.0-0.2) Prothrombin Time 12.8 SEC (11.7-14.0) Prothromb Time International Ratio 1.0 (0.8-1.1) D-Dimer (Jacey) 0.45 ug/mlFEU (0.00-0.50) Sodium Level 139 mmol/L (136-145) Potassium Level 4.7 mmol/L (3.5-5.1) Chloride Level 102 mmol/L (98-107) Carbon Dioxide Level 32 mmol/L (21-32) Anion Gap 5 (6-14) Blood Urea Nitrogen 29 mg/dL (7-20) Creatinine 1.2 mg/dL (0.6-1.0) Estimated GFR (Cockcroft-Gault) 44.7 BUN/Creatinine Ratio 24 (6-20) Glucose Level 98 mg/dL (70-99) Calcium Level 9.0 mg/dL (8.5-10.1) Magnesium Level 2.2 mg/dL (1.8-2.4) Total Bilirubin 0.6 mg/dL (0.2-1.0) Aspartate Amino Transf (AST/SGOT) 27 U/L (15-37) Alanine Aminotransferase (ALT/SGPT) 25 U/L (14-59) Alkaline Phosphatase 71 U/L (46-116) Troponin I Quantitative 0.027 ng/mL (0.000-0.055) 0.021 ng/mL (0.000-0.055) Total Protein 7.0 g/dL (6.4-8.2) Albumin 3.4 g/dL (3.4-5.0) Albumin/Globulin Ratio 0.9 (1.0-1.7) Glucose (Fingerstick) 83 mg/dL (70-99) Vitamin B12 Level 1160 pg/mL (247-911) Thyroid Stimulating Hormone (TSH) 3.026 uIU/mL (0.358-3.74) Test 01/11/17 23:30 01/12/17 04:20 01/12/17 04:35 Troponin I Quantitative 0.019 ng/mL (0.000-0.055) White Blood Count 8.2 x10^3/uL (4.0-11.0) Red Blood Count 4.09 x10^6/uL (3.50-5.40) Hemoglobin 12.7 g/dL (12.0-15.5) Hematocrit 37.9 % (36.0-47.0) Mean Corpuscular Volume 93 fL (79-100) Mean Corpuscular Hemoglobin 31 pg (25-35) Mean Corpuscular Hemoglobin Concent 34 g/dL (31-37) Red Cell Distribution Width 13.1 % (11.5-14.5) Platelet Count 190 x10^3/uL (140-400) Neutrophils (%) (Auto) 41 % (31-73) Lymphocytes (%) (Auto) 43 % (24-48) Monocytes (%) (Auto) 11 % (0-9) Eosinophils (%) (Auto) 5 % (0-3) Basophils (%) (Auto) 1 % (0-3) Neutrophils # (Auto) 3.3 x10^3uL (1.8-7.7) Lymphocytes # (Auto) 3.5 x10^3/uL (1.0-4.8) Monocytes # (Auto) 0.9 x10^3/uL (0.0-1.1) Eosinophils # (Auto) 0.4 x10^3/uL (0.0-0.7) Basophils # (Auto) 0.1 x10^3/uL (0.0-0.2) Sodium Level 139 mmol/L (136-145) Potassium Level 3.7 mmol/L (3.5-5.1) Chloride Level 102 mmol/L (98-107) Carbon Dioxide Level 30 mmol/L (21-32) Anion Gap 7 (6-14) Blood Urea Nitrogen 24 mg/dL (7-20) Creatinine 1.0 mg/dL (0.6-1.0) Estimated GFR (Cockcroft-Gault) 55.1 Glucose Level 87 mg/dL (70-99) Calcium Level 8.6 mg/dL (8.5-10.1) Laboratory Tests Test 01/11/17 17:14 01/11/17 17:30 01/11/17 23:30 01/12/17 04:20 Glucose (Fingerstick) 83 mg/dL (70-99) Troponin I Quantitative 0.021 ng/mL (0.000-0.055) 0.019 ng/mL (0.000-0.055) Vitamin B12 Level 1160 pg/mL (247-911) Thyroid Stimulating Hormone (TSH) 3.026 uIU/mL (0.358-3.74) White Blood Count 8.2 x10^3/uL (4.0-11.0) Red Blood Count 4.09 x10^6/uL (3.50-5.40) Hemoglobin 12.7 g/dL (12.0-15.5) Hematocrit 37.9 % (36.0-47.0) Mean Corpuscular Volume 93 fL (79-100) Mean Corpuscular Hemoglobin 31 pg (25-35) Mean Corpuscular Hemoglobin Concent 34 g/dL (31-37) Red Cell Distribution Width 13.1 % (11.5-14.5) Platelet Count 190 x10^3/uL (140-400) Neutrophils (%) (Auto) 41 % (31-73) Lymphocytes (%) (Auto) 43 % (24-48) Monocytes (%) (Auto) 11 % (0-9) Eosinophils (%) (Auto) 5 % (0-3) Basophils (%) (Auto) 1 % (0-3) Neutrophils # (Auto) 3.3 x10^3uL (1.8-7.7) Lymphocytes # (Auto) 3.5 x10^3/uL (1.0-4.8) Monocytes # (Auto) 0.9 x10^3/uL (0.0-1.1) Eosinophils # (Auto) 0.4 x10^3/uL (0.0-0.7) Basophils # (Auto) 0.1 x10^3/uL (0.0-0.2) Test 01/12/17 04:35 Sodium Level 139 mmol/L (136-145) Potassium Level 3.7 mmol/L (3.5-5.1) Chloride Level 102 mmol/L (98-107) Carbon Dioxide Level 30 mmol/L (21-32) Anion Gap 7 (6-14) Blood Urea Nitrogen 24 mg/dL (7-20) Creatinine 1.0 mg/dL (0.6-1.0) Estimated GFR (Cockcroft-Gault) 55.1 Glucose Level 87 mg/dL (70-99) Calcium Level 8.6 mg/dL (8.5-10.1) Medications Current Medications Aspirin (David Aspirin) 325 mg 1X ONCE PO ; Start 01/11/17 at 11:30; Stop at 11:31; Status DC Ondansetron HCl (Zofran) 4 mg PRN Q8HRS PRN IV NAUSEA/VOMITING; Start at 11:30; Stop 01/12/17 at 11:29; Status DC Aspirin (Children'S Aspirin) 162 mg 1X ONCE PO Last administered on 11:45; Start 01/11/17 at 11:45; Stop 01/11/17 at 11:46; Status DC Amlodipine Besylate (Norvasc) 5 mg DAILY PO Last administered on 01/12/17 08: 50; Start 01/11/17 at 14:30 Aspirin (Ecotrin) 81 mg DAILY08 PO Last administered on 01/12/17 08:50; Start 01/12/17 at 08:00 Atorvastatin Calcium (Lipitor) 10 mg QHS PO Last administered on 01/11/17 21: 08; Start 01/11/17 at 21:00 Carvedilol (Coreg) 12.5 mg BIDWMEALS PO Last administered on 01/12/17 08:49; Start 01/11/17 at 17:00 Levothyroxine Sodium (Synthroid) 50 mcg DAILY07 PO Last administered on 07:35; Start 01/11/17 at 14:30 Lisinopril (Prinivil) 20 mg DAILY PO Last administered on 01/12/17 08:50; Start 01/11/17 at 14:30 Nitroglycerin (Nitrostat) 0.4 mg PRN Q5MIN PRN SL CHEST PAIN; Start 01/11/17 at 14:15 Amoxicillin (Amoxil) 500 mg [id number] PO Last administered on 01/12/17 08:49; Start 01/11/17 at 14:30 Lactobacillus Rhamnosus (Culturelle) 1 cap BID PO Last administered on 08:49; Start 01/11/17 at 21:00 Sodium Chloride 1,000 ml @ 50 mls/hr Q20H IV Last administered on 01/11/17 17:31; Start 01/11/17 at 15:00 Acetaminophen (Tylenol) 650 mg PRN Q6HRS PRN PO MILD PAIN / TEMP; Start at 15:00 Magnesium Hydroxide (Milk Of Magnesia) 2,400 mg PRN DAILY PRN PO CONSTIPATION; Start 01/11/17 at 15:00 Active Scripts Active Reported Nitrostat (Nitroglycerin) 0.4 Mg Tab.subl 0.4 Mg SL PRN Q5MIN PRN Aspir 81 (Aspirin) 81 Mg Tablet.dr 1 Tab PO DAILY Amoxicillin 500 Mg Capsule 1 Cap PO Q8HRS Carvedilol 12.5 Mg Tablet 1 Tab PO BID Atorvastatin Calcium 10 Mg Tablet 1 Tab PO DAILY Amlodipine Besylate 5 Mg Tablet 5 Mg PO DAILY Levothyroxine Sodium 50 Mcg Tablet 1 Tab PO DAILY Lisinopril 20 Mg Tablet 1 Tab PO DAILY Vitals/I & O Vital Sign - Last 24 Hours 01/11/17 01/11/17 01/11/17 01/11/17 12:00 12:15 12:15 19:12 Temp 98.1 98.1 Pulse 62 62 Resp 20 B/P (MAP) 157/40 (79) 141/37 (71) 157/40 Pulse Ox 96 O2 Delivery Room Air Room Air 01/11/17 01/11/17 01/11/17 01/12/17 19:45 20:06 23:35 03:35 Temp 98.1 98.1 98.2 98.1 98.1 98.2 Pulse 77 59 61 Resp 18 17 18 B/P (MAP) 134/59 (84) 122/42 (68) 168/52 (90) Pulse Ox 97 97 97 O2 Delivery Room Air Room Air Room Air Room Air 01/12/17 01/12/17 01/12/17 01/12/17 07:00 08:49 08:50 08:50 Temp 98.1 98.1 Pulse 72 61 61 61 Resp 16 B/P (MAP) 120/45 (70) 168/52 168/52 168/52 Pulse Ox 96 O2 Delivery Room Air 01/12/17 11:00 Temp 98.0 98.0 Pulse 65 Resp 18 B/P (MAP) 121/41 (67) Pulse Ox 94 O2 Delivery Room Air Intake and Output 01/12/17 01/12/17 01/13/17 15:00 23:00 07:00 Intake Total 250 ml Balance 250 ml JAME RILEY MD Jan 12, 2017 11:46
--- NOTE | 2017-01-12 11:49 | DISCH ---
DISCHARGE INSTRUCTIONS Condition on Discharge Condition on Discharge: Stable Activity After Discharge Activity Instructions for Disc: Resume previous activity Diet after Discharge Diet after Discharge: Cardiac Contacting the DRHugh after DC Call your doctor for: If your condition worsens Follow-Up Follow up with: dr. riley next week JAME RILEY MD Jan 12, 2017 11:49
--- NOTE | 2017-01-12 11:55 | PDOC ---
Provider Note Provider Note discharge summary dictated # [id number] JAME RILEY MD Jan 12, 2017 11:55
--- NOTE | 2017-01-12 12:18 | PDOC ---
PROGRESS NOTES Subjective Subjective Patient doing well, denies chest pain or shortness of air. Had EEG this morning. Wanting to go home. Objective Objective Vital Signs Date Time Temp Pulse Resp B/P (MAP) Pulse Ox O2 Delivery O2 Flow Rate FiO2 01/12/17 11:00 98.0 65 18 121/41 (67) 94 Room Air 98.0 Intake and Output 01/13/17 07:00 Intake Total 250 ml Balance 250 ml Intake Oral 250 ml Physical Exam Physical Exam general: well appearing, no acute distres HEENT: neck supple, no JVD, EOMI CV: regular rate and rhythm without murmur Resp: no increased work of breathing; crackles Right base ext: warm; no clubbing cyanosis or edema Diagnosis DIAGNOSIS Problems: Assessment Assessment Problems Medical Problems: (1) Chest pain Status: Acute Assessment/Plan Miss Borjas is a 66 year old female with PMH CAD s/p CABG who presented to the ED with altered mental status following taking nitroglycerin for chest pain The chest pain seems to be atypical for angina and is probably secondary to chest wall pain from coughing. The episode of unresponsiveness may be secondary to hypotension from the nitroglycerin. At this time she seems to be normal and back to her baseline. Echocardiogram shows Left ventricle systolic function is normal. The Ejection Fraction is 65%. Transmitral Doppler flow pattern is Grade I-abnormal relaxation pattern. The left atrium size is normal. The right atrium size is normal. Doppler and Color Flow revealed trace aortic regurgitation. Doppler and Color-flow revealed mild mitral regurgitation. The mitral valve is calcified but opens well. Doppler and Color Flow revealed mild tricuspid regurgitation. There is mild pulmonary hypertension. The PA pressure was estimated at 33 mmHg. Doppler and Color Flow revealed mild pulmonic valvular regurgitation. There is no evidence of significant pericardial effusion. Thank you for asking me to participate in the care of this pt. Comment Review of Relevant I have reviewed the following items segundo (where applicable) has been applied. Labs Laboratory Tests Test 01/11/17 09:45 01/11/17 10:50 01/11/17 17:14 01/11/17 17:30 Urine Collection Type Unknown Urine Color Yellow Urine Clarity Clear Urine pH 6.0 Urine Specific [place] 1.020 Urine Protein Negative mg/dL (NEG-TRACE) Urine Glucose (UA) Negative mg/dL (NEG) Urine Ketones (Stick) Negative mg/dL (NEG) Urine Blood Negative (NEG) Urine Nitrite Negative (NEG) Urine Bilirubin Negative (NEG) Urine Urobilinogen Dipstick 1.0 mg/dL (0.2 mg/dL) Urine Leukocyte Esterase Trace (NEG) Urine RBC 1-2 /HPF (0-2) Urine WBC 1-4 /HPF (0-4) Urine Squamous Epithelial Cells Few /LPF Urine Bacteria Few /HPF (0-FEW) Urine Hyaline Casts Moderate /HPF Urine Mucus Slight /LPF White Blood Count 8.9 x10^3/uL (4.0-11.0) Red Blood Count 4.10 x10^6/uL (3.50-5.40) Hemoglobin 12.9 g/dL (12.0-15.5) Hematocrit 38.1 % (36.0-47.0) Mean Corpuscular Volume 93 fL (79-100) Mean Corpuscular Hemoglobin 32 pg (25-35) Mean Corpuscular Hemoglobin Concent 34 g/dL (31-37) Red Cell Distribution Width 13.6 % (11.5-14.5) Platelet Count 189 x10^3/uL (140-400) Neutrophils (%) (Auto) 63 % (31-73) Lymphocytes (%) (Auto) 26 % (24-48) Monocytes (%) (Auto) 8 % (0-9) Eosinophils (%) (Auto) 2 % (0-3) Basophils (%) (Auto) 1 % (0-3) Neutrophils # (Auto) 5.6 x10^3uL (1.8-7.7) Lymphocytes # (Auto) 2.3 x10^3/uL (1.0-4.8) Monocytes # (Auto) 0.7 x10^3/uL (0.0-1.1) Eosinophils # (Auto) 0.2 x10^3/uL (0.0-0.7) Basophils # (Auto) 0.1 x10^3/uL (0.0-0.2) Prothrombin Time 12.8 SEC (11.7-14.0) Prothromb Time International Ratio 1.0 (0.8-1.1) D-Dimer (Jacey) 0.45 ug/mlFEU (0.00-0.50) Sodium Level 139 mmol/L (136-145) Potassium Level 4.7 mmol/L (3.5-5.1) Chloride Level 102 mmol/L (98-107) Carbon Dioxide Level 32 mmol/L (21-32) Anion Gap 5 (6-14) Blood Urea Nitrogen 29 mg/dL (7-20) Creatinine 1.2 mg/dL (0.6-1.0) Estimated GFR (Cockcroft-Gault) 44.7 BUN/Creatinine Ratio 24 (6-20) Glucose Level 98 mg/dL (70-99) Calcium Level 9.0 mg/dL (8.5-10.1) Magnesium Level 2.2 mg/dL (1.8-2.4) Total Bilirubin 0.6 mg/dL (0.2-1.0) Aspartate Amino Transf (AST/SGOT) 27 U/L (15-37) Alanine Aminotransferase (ALT/SGPT) 25 U/L (14-59) Alkaline Phosphatase 71 U/L (46-116) Troponin I Quantitative 0.027 ng/mL (0.000-0.055) 0.021 ng/mL (0.000-0.055) Total Protein 7.0 g/dL (6.4-8.2) Albumin 3.4 g/dL (3.4-5.0) Albumin/Globulin Ratio 0.9 (1.0-1.7) Glucose (Fingerstick) 83 mg/dL (70-99) Vitamin B12 Level 1160 pg/mL (247-911) Thyroid Stimulating Hormone (TSH) 3.026 uIU/mL (0.358-3.74) Test 01/11/17 23:30 01/12/17 04:20 01/12/17 04:35 Troponin I Quantitative 0.019 ng/mL (0.000-0.055) White Blood Count 8.2 x10^3/uL (4.0-11.0) Red Blood Count 4.09 x10^6/uL (3.50-5.40) Hemoglobin 12.7 g/dL (12.0-15.5) Hematocrit 37.9 % (36.0-47.0) Mean Corpuscular Volume 93 fL (79-100) Mean Corpuscular Hemoglobin 31 pg (25-35) Mean Corpuscular Hemoglobin Concent 34 g/dL (31-37) Red Cell Distribution Width 13.1 % (11.5-14.5) Platelet Count 190 x10^3/uL (140-400) Neutrophils (%) (Auto) 41 % (31-73) Lymphocytes (%) (Auto) 43 % (24-48) Monocytes (%) (Auto) 11 % (0-9) Eosinophils (%) (Auto) 5 % (0-3) Basophils (%) (Auto) 1 % (0-3) Neutrophils # (Auto) 3.3 x10^3uL (1.8-7.7) Lymphocytes # (Auto) 3.5 x10^3/uL (1.0-4.8) Monocytes # (Auto) 0.9 x10^3/uL (0.0-1.1) Eosinophils # (Auto) 0.4 x10^3/uL (0.0-0.7) Basophils # (Auto) 0.1 x10^3/uL (0.0-0.2) Sodium Level 139 mmol/L (136-145) Potassium Level 3.7 mmol/L (3.5-5.1) Chloride Level 102 mmol/L (98-107) Carbon Dioxide Level 30 mmol/L (21-32) Anion Gap 7 (6-14) Blood Urea Nitrogen 24 mg/dL (7-20) Creatinine 1.0 mg/dL (0.6-1.0) Estimated GFR (Cockcroft-Gault) 55.1 Glucose Level 87 mg/dL (70-99) Calcium Level 8.6 mg/dL (8.5-10.1) Laboratory Tests Test 01/11/17 17:14 01/11/17 17:30 01/11/17 23:30 01/12/17 04:20 Glucose (Fingerstick) 83 mg/dL (70-99) Troponin I Quantitative 0.021 ng/mL (0.000-0.055) 0.019 ng/mL (0.000-0.055) Vitamin B12 Level 1160 pg/mL (247-911) Thyroid Stimulating Hormone (TSH) 3.026 uIU/mL (0.358-3.74) White Blood Count 8.2 x10^3/uL (4.0-11.0) Red Blood Count 4.09 x10^6/uL (3.50-5.40) Hemoglobin 12.7 g/dL (12.0-15.5) Hematocrit 37.9 % (36.0-47.0) Mean Corpuscular Volume 93 fL (79-100) Mean Corpuscular Hemoglobin 31 pg (25-35) Mean Corpuscular Hemoglobin Concent 34 g/dL (31-37) Red Cell Distribution Width 13.1 % (11.5-14.5) Platelet Count 190 x10^3/uL (140-400) Neutrophils (%) (Auto) 41 % (31-73) Lymphocytes (%) (Auto) 43 % (24-48) Monocytes (%) (Auto) 11 % (0-9) Eosinophils (%) (Auto) 5 % (0-3) Basophils (%) (Auto) 1 % (0-3) Neutrophils # (Auto) 3.3 x10^3uL (1.8-7.7) Lymphocytes # (Auto) 3.5 x10^3/uL (1.0-4.8) Monocytes # (Auto) 0.9 x10^3/uL (0.0-1.1) Eosinophils # (Auto) 0.4 x10^3/uL (0.0-0.7) Basophils # (Auto) 0.1 x10^3/uL (0.0-0.2) Test 01/12/17 04:35 Sodium Level 139 mmol/L (136-145) Potassium Level 3.7 mmol/L (3.5-5.1) Chloride Level 102 mmol/L (98-107) Carbon Dioxide Level 30 mmol/L (21-32) Anion Gap 7 (6-14) Blood Urea Nitrogen 24 mg/dL (7-20) Creatinine 1.0 mg/dL (0.6-1.0) Estimated GFR (Cockcroft-Gault) 55.1 Glucose Level 87 mg/dL (70-99) Calcium Level 8.6 mg/dL (8.5-10.1) Medications Current Medications Aspirin (David Aspirin) 325 mg 1X ONCE PO ; Start 01/11/17 at 11:30; Stop at 11:31; Status DC Ondansetron HCl (Zofran) 4 mg PRN Q8HRS PRN IV NAUSEA/VOMITING; Start at 11:30; Stop 01/12/17 at 11:29; Status DC Aspirin (Children'S Aspirin) 162 mg 1X ONCE PO Last administered on 11:45; Start 01/11/17 at 11:45; Stop 01/11/17 at 11:46; Status DC Amlodipine Besylate (Norvasc) 5 mg DAILY PO Last administered on 01/12/17 08: 50; Start 01/11/17 at 14:30 Aspirin (Ecotrin) 81 mg DAILY08 PO Last administered on 01/12/17 08:50; Start 01/12/17 at 08:00 Atorvastatin Calcium (Lipitor) 10 mg QHS PO Last administered on 01/11/17 21: 08; Start 01/11/17 at 21:00 Carvedilol (Coreg) 12.5 mg BIDWMEALS PO Last administered on 01/12/17 08:49; Start 01/11/17 at 17:00 Levothyroxine Sodium (Synthroid) 50 mcg DAILY07 PO Last administered on 07:35; Start 01/11/17 at 14:30 Lisinopril (Prinivil) 20 mg DAILY PO Last administered on 01/12/17 08:50; Start 01/11/17 at 14:30 Nitroglycerin (Nitrostat) 0.4 mg PRN Q5MIN PRN SL CHEST PAIN; Start 01/11/17 at 14:15 Amoxicillin (Amoxil) 500 mg [id number] PO Last administered on 01/12/17 08:49; Start 01/11/17 at 14:30 Lactobacillus Rhamnosus (Culturelle) 1 cap BID PO Last administered on 08:49; Start 01/11/17 at 21:00 Sodium Chloride 1,000 ml @ 50 mls/hr Q20H IV Last administered on 01/11/17 17:31; Start 01/11/17 at 15:00; Stop 01/12/17 at 11:48; Status DC Acetaminophen (Tylenol) 650 mg PRN Q6HRS PRN PO MILD PAIN / TEMP; Start at 15:00 Magnesium Hydroxide (Milk Of Magnesia) 2,400 mg PRN DAILY PRN PO CONSTIPATION; Start 01/11/17 at 15:00 Active Scripts Active Reported Aspir 81 (Aspirin) 81 Mg Tablet.dr 1 Tab PO DAILY Amoxicillin 500 Mg Capsule 1 Cap PO Q8HRS Carvedilol 12.5 Mg Tablet 1 Tab PO BID Atorvastatin Calcium 10 Mg Tablet 1 Tab PO DAILY Amlodipine Besylate 5 Mg Tablet 5 Mg PO DAILY Levothyroxine Sodium 50 Mcg Tablet 1 Tab PO DAILY Lisinopril 20 Mg Tablet 1 Tab PO DAILY Vitals/I & O Vital Sign - Last 24 Hours 01/11/17 01/11/17 01/11/17 01/11/17 19:12 19:45 20:06 23:35 Temp 98.1 98.1 98.1 98.1 Pulse 62 77 59 Resp 18 17 B/P (MAP) 157/40 134/59 (84) 122/42 (68) Pulse Ox 97 97 O2 Delivery Room Air Room Air Room Air 01/12/17 01/12/17 01/12/17 01/12/17 03:35 07:00 08:49 08:50 Temp 98.2 98.1 98.2 98.1 Pulse 61 72 61 61 Resp 18 16 B/P (MAP) 168/52 (90) 120/45 (70) 168/52 168/52 Pulse Ox 97 96 O2 Delivery Room Air Room Air 01/12/17 01/12/17 08:50 11:00 Temp 98.0 98.0 Pulse 61 65 Resp 18 B/P (MAP) 168/52 121/41 (67) Pulse Ox 94 O2 Delivery Room Air Intake and Output 01/12/17 01/12/17 01/13/17 15:00 23:00 07:00 Intake Total 250 ml Balance 250 ml JOHN PAUL CARVER MD Jan 12, 2017 12:18
--- NOTE | 2017-01-12 13:11 | EEG ---
DATE OF SERVICE: 01/12/2017 ELECTROENCEPHALOGRAM NUMBER: [id number]. OBJECTIVE: This is a 66-year-old female patient with history of seizure-like episodes described as loss of consciousness, unresponsiveness, drooling for about 10 or more minutes. EEG was requested to evaluate seizure activity. METHODS: Twenty electrodes were applied according to the international 10-20 electrode placement system. EKG monitoring, hyperventilation, intermittent photic stimulation, monopolar and bipolar montages are routinely utilized. The record was obtained on a digital system with video monitoring. FINDINGS: 1. Background: The patient was recorded in the awake, drowsy, and sleep states. The overall background amplitude is 10-20 microvolts. A posterior dominant rhythm of 8 Hz is observed. 2. Abnormalities: No specific epileptiform discharge or electrographic seizure is seen. No diffuse slowing. Artifact noted. 3. Activation: Hyperventilation was performed with good efforts and normal response. Intermittent photic stimulation was performed with photic driving. No specific epileptiform discharge or electrographic seizure induced by hyperventilation or intermittent photic stimulation. IMPRESSION: This electroencephalogram is within the normal limits of the study for the awake, drowsy, and sleep states. No focal, lateralizing, specific epileptiform discharge or electrographic seizure is seen. IGNACIO ESCALANTE MD DR: TAO/negrito JOB#: [id number] / [id number] CARLO
--- NOTE | 2017-01-12 13:20 | DS ---
DATE OF DISCHARGE: 01/12/2017 CONSULTANTS: Dr. Altamirano, Dr. Stone. FINAL DIAGNOSES: 1. Syncopal episode, most likely secondary to hypotension from sublingual nitroglycerin and dehydration. 2. Dehydration with prerenal azotemia. 3. Right-sided atypical musculoskeletal chest pain. 4. Hypertension. 5. Hyperlipidemia. 6. Hypothyroidism. 7. Coronary artery disease with previous coronary bypass graft surgery. HOSPITAL COURSE: The patient is a 66-year-old white female with a history of coronary artery disease with previous coronary artery bypass graft surgery in 2012, who has hypertension, hyperlipidemia and hypothyroidism who woke yesterday morning with right-sided chest pain. She takes 3 sublingual nitroglycerin and pain did improve somewhat and she went back to sleep and had the pain soon after and took three aspirin 81 mg. Apparently her gave her some sublingual nitroglycerin in addition to that and the patient had a blank stare and was drooling from her mouth and it lasted about 10-15 minutes and the EMT was summoned and the patient was confused and sent to the [facility] Emergency Room. Her EKG showed no acute change. Chest x-ray was clear. CAT scan of the head was negative and she was alert, coherent and pain free at that time. A D-dimer was normal. The patient was admitted to the hospital, had no significant arrhythmia, seen by Dr. Stone in consultation and also Dr. Altamirano for Neurology. The patient had an MR of the brain, which showed no acute abnormality. An echocardiogram was also done. The echocardiogram showed a left ventricular ejection fraction of 65%. She had trace aortic regurgitation, mild mitral regurgitation, mild tricuspid regurgitation, mild pulmonary hypertension and no significant pericardial effusion. Cardiac enzymes were negative. She will be dismissed to home on the same medications but should avoid taking sublingual nitroglycerin at this time as it caused hypotension. She was started on amoxicillin prior to admission the day before for acute bronchitis. So she will be dismissed to home on amoxicillin 500 mg t.i.d. for another 5 days, carvedilol 12.5 mg b.i.d., levothyroxine 50 mcg every day, atorvastatin 10 mg every day, lisinopril 20 mg every day, amlodipine 5 mg every day and aspirin 81 mg every day and she will follow up and see Dr. Riley next week. Try to avoid the use of sublingual nitroglycerin, especially unless she is having some left-sided chest discomfort and also not to take so many at a time, perhaps just 1 or 2 sequentially instead of 5 or 6 that she did. She should also drink more fluids. She also received IV fluids when she was in the hospital. JAME RILEY MD DR: FAUSTO/negrito JOB#: [id number] / [id number]
--- NOTE | 2017-01-12 14:51 | PDOC ---
PROGRESS NOTES Assessment Assessment Unresponsiveness episode. Confusion. Chest pain, right side chest. Nitroglycerin over dose. Hypotension events. HTN HLD CAD s/p CABG Hypothyroidism No evidence of seizure this time. No evidence of acute CVA this time. RECOMMENDATIONS/PLAN: Treat medical and cardiac disease. Discussed with her at bedside. EEG on 01/12/17: Normal. Brain MRI on 01/11/17: Negative except brain volume loss. HISTORY OF THE PRESENT ILLNESS: 66-y-old female patient with above medical and cardiac diseases had an episode of unresponsiveness. The patient was unable to provide the detailed information about her episode due to lack of memory on it, but she remembered she had severe right side chest pain that woken her up from sleep. She eventually took 3 nitroglycerin for her right side and back chest pain. Per her , she then was sitting there became unresponsive to verbal and textile stimuli. Her eye were described as open as staring. No seizure observed. 911 was called and she was brought to the ER of [facility]. Her episode lasted for about 10 minutes. Patient stated on 01/12/17 that she actually had taken 5 doses of nitroglycerin before her symptoms occurred. PAST MEDICAL HISTORY: HTN HLD CAD Hypothyroidism PAST SURGERY HISTORY: S/P CABG Appendectomy Hysterectomy ALLERGY: Sulfa drugs. MEDICATIONS: Refer to [facility] FAMILY HISTORY: Her father had HTN. SOCIAL HISTORY: Lives at home. Denies current smoking, drinking, and illicit drug use. REVIEW OF SYSTEMS: Constitutional: Mild malnutrition. Head: No recent traumatic brain or head injury. Skin: No edema, or rash. Ear: No infection, tinnitus. Eyes: No vision loss or color blindness. Nose: No bleeding or purulent discharges. Hearing: No hearing decrease. Neck: No recent injury. Breast: No history of cancer, masses,or discharges. Cardiac: CAD, s/p CABG, HTN, HLD. Pulmonary: No COPD. GI: No GI ulcer, GI bleeding. Urinary/genital: UTI. Endocrinologic: Hypothyroidism. Skeletomuscular: No muscular atrophy, deformity. Neurological: see HP. Psychiatric: Denies drug use/abuse. Otherwise, not [id number] review of systems. PHYSICAL EXAMINATION: General appearance is in no acute distress. HEENT: Normocephalic and nontraumatic. Eyes, nose, ears, and throat are unremarkable. Neck is supple. No lymphadenopathy. No bruits are heard over the carotid artery. No crepitus. Cardiovascular: S1, S2, regular rate and rhythm. Pulmonary: Clear to auscultation bilaterally. Abdomen: Bowel sounds are positive. Abdomen is soft, nontender, and nondistended. Extremities: No rash, lesions, or edema. No restriction of range of motion NEUROLOGICAL EXAMINATION: Alert Oriented to time, place and person. PERRL. EOMI. CN: no focal findings. Muscle tone: within normal. Muscle strength: 5- DTR: 2 Plantar reflex: Flexor response bilaterally Gait: not examined in bed. Sensory exam: no abnormal findings. No cerebellar signs elicited. F-T-N test accurate. Objective Objective Vital Signs Date Time Temp Pulse Resp B/P (MAP) Pulse Ox O2 Delivery O2 Flow Rate FiO2 01/12/17 11:00 98.0 65 18 121/41 (67) 94 Room Air 98.0 Intake and Output 01/13/17 06:59 Intake Total 1300 ml Balance 1300 ml Intake Oral 500 ml IV Total 800 ml Vitals Signs Vitals VS - Last 72 Hours, by Label Date Time Temp Pulse Resp B/P (MAP) Pulse Ox O2 Delivery O2 Flow Rate FiO2 01/12/17 11:00 98.0 65 18 121/41 (67) 94 Room Air 98.0 01/12/17 08:50 61 168/52 01/12/17 08:50 61 168/52 01/12/17 08:49 61 168/52 01/12/17 07:30 Room Air 01/12/17 07:00 98.1 72 16 120/45 (70) 96 Room Air 98.1 01/12/17 03:35 98.2 61 18 168/52 (90) 97 Room Air 98.2 01/11/17 23:35 98.1 59 17 122/42 (68) 97 Room Air 98.1 01/11/17 20:06 Room Air 01/11/17 19:45 98.1 77 18 134/59 (84) 97 Room Air 98.1 01/11/17 19:12 62 157/40 01/11/17 12:15 98.1 62 20 141/37 (71) 96 Room Air 98.1 01/11/17 12:15 157/40 (79) 01/11/17 12:00 Room Air 01/11/17 10:53 64 20 98 01/11/17 10:05 97.9 64 18 147/64 (91) 98 Room Air 97.9 01/11/17 09:55 60 20 98 Laboratory Laboratory Laboratory Tests Test 01/11/17 17:14 01/11/17 17:30 01/11/17 23:30 01/12/17 04:20 Glucose (Fingerstick) 83 mg/dL (70-99) Troponin I Quantitative 0.021 ng/mL (0.000-0.055) 0.019 ng/mL (0.000-0.055) Vitamin B12 Level 1160 pg/mL (247-911) Thyroid Stimulating Hormone (TSH) 3.026 uIU/mL (0.358-3.74) White Blood Count 8.2 x10^3/uL (4.0-11.0) Red Blood Count 4.09 x10^6/uL (3.50-5.40) Hemoglobin 12.7 g/dL (12.0-15.5) Hematocrit 37.9 % (36.0-47.0) Mean Corpuscular Volume 93 fL (79-100) Mean Corpuscular Hemoglobin 31 pg (25-35) Mean Corpuscular Hemoglobin Concent 34 g/dL (31-37) Red Cell Distribution Width 13.1 % (11.5-14.5) Platelet Count 190 x10^3/uL (140-400) Neutrophils (%) (Auto) 41 % (31-73) Lymphocytes (%) (Auto) 43 % (24-48) Monocytes (%) (Auto) 11 % (0-9) Eosinophils (%) (Auto) 5 % (0-3) Basophils (%) (Auto) 1 % (0-3) Neutrophils # (Auto) 3.3 x10^3uL (1.8-7.7) Lymphocytes # (Auto) 3.5 x10^3/uL (1.0-4.8) Monocytes # (Auto) 0.9 x10^3/uL (0.0-1.1) Eosinophils # (Auto) 0.4 x10^3/uL (0.0-0.7) Basophils # (Auto) 0.1 x10^3/uL (0.0-0.2) Test 01/12/17 04:35 Sodium Level 139 mmol/L (136-145) Potassium Level 3.7 mmol/L (3.5-5.1) Chloride Level 102 mmol/L (98-107) Carbon Dioxide Level 30 mmol/L (21-32) Anion Gap 7 (6-14) Blood Urea Nitrogen 24 mg/dL (7-20) Creatinine 1.0 mg/dL (0.6-1.0) Estimated GFR (Cockcroft-Gault) 55.1 Glucose Level 87 mg/dL (70-99) Calcium Level 8.6 mg/dL (8.5-10.1) Medication Medications Current Medications Acetaminophen (Tylenol) 650 mg PRN Q6HRS PRN PO MILD PAIN / TEMP; Start at 15:00; Stop 01/12/17 at 14:28; Status DC Aspirin (Ecotrin) 81 mg DAILY08 PO Last administered on 01/12/17 08:50; Start 01/12/17 at 08:00; Stop 01/12/17 at 14:28; Status DC Atorvastatin Calcium (Lipitor) 10 mg QHS PO Last administered on 01/11/17 21: 08; Start 01/11/17 at 21:00; Stop 01/12/17 at 14:28; Status DC Carvedilol (Coreg) 12.5 mg BIDWMEALS PO Last administered on 01/12/17 08:49; Start 01/11/17 at 17:00; Stop 01/12/17 at 14:28; Status DC Lactobacillus Rhamnosus (Culturelle) 1 cap BID PO Last administered on 08:49; Start 01/11/17 at 21:00; Stop 01/12/17 at 14:28; Status DC Magnesium Hydroxide (Milk Of Magnesia) 2,400 mg PRN DAILY PRN PO CONSTIPATION; Start 01/11/17 at 15:00; Stop 01/12/17 at 14:28; Status DC Sodium Chloride 1,000 ml @ 50 mls/hr Q20H IV Last administered on 01/11/17 17:31; Start 01/11/17 at 15:00; Stop 01/12/17 at 11:48; Status DC Comment Review of Relevant I have reviewed the following items segundo (where applicable) has been applied. IGNACIO ESCALANTE MD Jan 12, 2017 14:51
== END 2017-01-12 14:05 | disposition home or self-care (01) | DRG 316 ==
LOC: ER 09:38 → 2 SOUTH 11:08
PROVIDERS: ADMIT Internal Medicine; ATTEND Internal Medicine
DX: I95.9 Hypotension, unspecified (principal); I27.20 Pulmonary hypertension, unspecified; E03.9 Hypothyroidism, unspecified; E78.5 Hyperlipidemia, unspecified; E86.0 Dehydration; I10 Essential (primary) hypertension; M54.5 Low back pain; T46.3X5A Adverse effect of coronary vasodilators, initial encounter; R07.89 Other chest pain; I25.10 Atherosclerotic heart disease of native coronary artery without angina pectoris; I34.0 Nonrheumatic mitral (valve) insufficiency; I37.1 Nonrheumatic pulmonary valve insufficiency; Z79.82 Long term (current) use of aspirin; Z79.899 Other long term (current) drug therapy; Z82.49 Family history of ischemic heart disease and other diseases of the circulatory system; Z90.49 Acquired absence of other specified parts of digestive tract; Z90.710 Acquired absence of both cervix and uterus; Z95.1 Presence of aortocoronary bypass graft; Y92.89 Other specified places as the place of occurrence of the external cause
CPT/HCPCS: 36415; 70450; 70551; 71010; 80048; 80053; 81001; 82306; 82607; 82962; 83735; 84443; 84484; 85025; 85379; 85610; 87086; 93005; 93306; 99285-25